=== PATIENT | male | born 1985 | race Caucasian/White ===

== ENCOUNTER 2023-01-17 09:56 | Emergency (ER) | payer OTHER, SELFPAY ==
[2023-01-17] VITALS (19 sets, daily range): BP systolic 110–152; BP diastolic 87–93; PULSE 62–89; RESP 13–18; TEMP 36.4; O2SAT 93–100
--- NOTE | ~2023-01-17 | CT_ITS ---
EXAMINATION: CT abdomen pelvis wo con DATE: 01/17/2023 10:27 INDICATION: Right abdominal pain. TECHNIQUE: Computed tomography (CT) of the abdomen and pelvis was performed without intravenous contr ast. Automated exposure control and iterative reconstruction technique were employed. The dose-length product was 312.68 mGy-cm. COMPARISON: None. FINDINGS: The visualized portions of the lung bases demonstrate minimal atelectasis. Calcified right lung nodules and calcified right hilar lymph nodes are consistent with old granulomatous disease. No pleural effusion. The heart size is normal. No pericardial effusion. The liver and gallbladder are no rmal. Calcifications in the spleen are consistent with old granulomatous disease. The pancreas, adren al glands, and right kidney are normal. There is a 2 mm stone in left kidney. There is a left inguina l hernia containing fat. There are no dilated loops of bowel. The appendix is normal. There is divert iculosis of the colon without evidence of diverticulitis. There are no pathologically enlarged lymph nodes. There is no free intraperitoneal fluid. There is severe lower lumbar spondylosis. IMPRESSION: 1. Left inguinal hernia containing fat. Reviewed, dictated and finalized at location A.
--- NOTE | ~2023-01-17 | US_ITS ---
EXAMINATION: US scrotum doppler DATE: 01/17/2023 11:36 INDICATION: Right testicular pain. TECHNIQUE: Grayscale and Doppler ultrasound images of the testes were obtained. COMPARISON: None. FINDINGS: The right testis measures 5.2 x 2.6 x 2.8 cm. The left testis measures 5.0 x 2.1 x 3.1 cm. There is normal vascular flow to both testes. The right epididymis is normal with normal vascular dennis w. The left epididymis is normal with normal vascular flow. There is no varicocele or hydrocele. IMPRESSION: 1. Normal testes. Reviewed, dictated and finalized at location A. IMPRESSION: 1. Normal testes.
--- NOTE | 2023-01-17 10:08 | ED.ABDPAIN ---
HPI - Abdominal Pain General Chief Complaint: Abdominal Pain Stated Complaint: ABD pain Time Seen by Provider: 01/17/23 10:02 Source: patient Mode of arrival: ambulatory Limitations: no limitations History of Present Illness HPI narrative: Patient is a 37 y/o male who presents to the ED with c/o R lower quadrant abdominal pain. Patient reports the pain began suddenly 1.5 hours ago. He states the pain is focal to his right lower abdomen and radiates down towards his groin/testicles. Denies any pain in his right back. He has not taken anything for pain prior to arrival. He has a history of kidney stones, last occurring a few months ago, which she was able to pass on his own. He states the pain feels somewhat similar to previous kidney stones, but he typically has pain in the back as well. He reports mild nausea, denies vomiting. Denies diarrhea. Denies difficulty urinating, dysuria, hematuria. Denies fevers. Related Data Allergies Allergy/AdvReac Type Severity Reaction Status Date / Time No Known Allergies Allergy Verified 01/17/23 10:01 Review of Systems Review of Systems: CONSTITUTIONAL: Denies fever, chills, or sweats. CARDIOVASCULAR: Denies chest pain. RESPIRATORY: Denies dyspnea. GASTROINTESTINAL: See HPI. GENITOURINARY: Denies dysuria or hematuria. SKIN: Denies rash or itching. MUSCULOSKELETAL: See HPI. All systems reviewed & are unremarkable except as noted in HPI and below PMFSH Past Medical History Medical History (Updated 01/17/23 @ 12:44 by Christie Schroeder PA-C) Kidney stones Exam Narrative: GENERAL: Uncomfortable appearing, well-nourished, non-toxic, in mild acute distress due to pain. HEAD: Normocephalic, atraumatic. NECK: Supple. No adenopathy, no masses. RESPIRATORY: Airway patent, respirations nonlabored. Clear to auscultation bilaterally, no rales, rhonchi, wheezing. CARDIOVASCULAR: Regular rate and rhythm without murmurs, rubs, or gallops. Radial pulses 2+ and equal bilaterally. ABDOMINAL: Soft, focal tenderness to right lower abdomen, mild tenderness in suprapubic region. Nondistended, no hepatosplenomegaly. Normoactive BS. MUSCULOSKELETAL: Moves all extremities. Strength/ROM intact without gross deformities. SKIN: Warm, dry, normal color. No rashes. NEURO: A&O X3. Speech clear. Cranial nerves II-XII grossly intact. Steady gait. No ataxic movements. PSYCHIATRIC: Appropriate mood and affect. Normal interaction. Course Vital Signs Vital signs: Vital Signs Temperature 97.6 F 01/17/23 10:01 Pulse Rate 88 01/17/23 10:01 Respiratory Rate 18 01/17/23 10:01 Blood Pressure 136/93 H 01/17/23 10:01 Pulse Oximetry 99 01/17/23 10:01 Oxygen Delivery Room Air 01/17/23 10:01 Temperature 97.6 F 01/17/23 10:01 Pulse Rate 66 01/17/23 12:39 Respiratory Rate 13 01/17/23 12:39 Blood Pressure 143/92 H 01/17/23 11:46 Pulse Oximetry 96 01/17/23 12:39 Oxygen Delivery Room Air 01/17/23 10:01 MDM - Abdominal Pain MDM Narrative Medical decision making narrative: Patient presented to ED with sudden onset of right lower abdominal pain, history of kidney stones. Vitals stable upon arrival, though patient very uncomfortable appearing, writhing around on ED bed. Basic blood work unremarkable, no leukocytosis. Stable electrolytes and kidney function. Normal LFTs and lipase. Urinalysis with RBCs, no signs of infection. CT scan of abdomen pelvis showing left inguinal hernia containing fat, no other significant abnormalities. No ureteral stones. Normal appendix. No bowel abnormalities. Patient still complaining of severe pain on reevaluation, will order additional pain medicine. Will obtain scrotal ultrasound as patient does report pain radiates down to his testicles. US w/o acute findings. No signs of torsion. Patient updated on lab and imaging findings. He is feeling much better with supportive therapy. Feels comfortable discharge home and would like to
[2023-01-17] MEDS: SODIUM CHLORIDE 0.9% IV 1,000 ML 999 ML IV CONT (10:13)
[2023-01-17] MEDS: ONDANSETRON INJ 4 MG/2 ML VIAL IV PUSH (10:14)
[2023-01-17] MEDS: MORPHINE SULFATE (*CRX) 4 MG/ML INJ IV PUSH (10:14)
[2023-01-17 10:17] LABS: Basophils Absolute Auto 0.1 K/mm3 (0.0-0.1); Basophils Percent Auto 0.7 % (0.2-1.2); Eosinophils Absolute Auto 0.2 K/mm3 (0-0.3); Eosinophils Percent Auto 2.2 % (0-4.4); Hematocrit 41.5 % (42.0-52.0); Hemoglobin 13.8 g/dL (14.0-18.0); Immature Granulocyte Absolute 0.02 K/mm3 (0.00-0.031); Immature Granulocyte Percent A 0.3 % (0-0.5); Lymphocytes Absolute Auto 1.21 K/mm3 (0.9-3.2); Lymphocytes Percent Auto 15.9 % (18.3-44.2); Mean Corpuscular HGB Conc 33.3 g/dl (32-36); Mean Corpuscular Hemoglobin 31.7 pg (26-34); Mean Corpuscular Volume 95.2 fl (80-100); Mean Platelet Volume 9.2 fl (7.4-10.4); Monocytes Absolute Auto 0.5 K/mm3 (0.1-0.6); Monocytes Percent Auto 6.1 % (2.6-8.5); Neutrophils Absolute Auto 5.7 K/mm3 (1.3-6.7); Neutrophils Percent Auto 74.8 % (45.5-73.1); Platelet Count Result 336 k/mm3 (150-375); Red Blood Count 4.36 M/mm3 (4.6-6.20); Red Cell Distribution Width 13.5 % (11.5-14.5); White Blood Count 7.6 K/mm3 (4.5-10.0)
[2023-01-17 10:30] LABS: Alanine Aminotransferase 42 U/L (6-50); Albumin Level 4.4 g/dL (3.5-5.1); Alkaline Phosphatase 70 U/L (38-126); Anion Gap 9 mmol/L (8-16); Aspartate Amino Transferase 73 U/L (17-59); Bilirubin,Total 0.6 mg/dL (0.2-1.3); Blood Urea Nitrogen 14 mg/dL (9-20); Calcium 9.8 mg/dL (8.4-10.2); Carbon Dioxide 27 mmol/L (22-30); Chloride 103 mmol/L (98-107); Estimated CRCL calculation 109 ml/min; Estimated Glomerular Filt Rate > 60; Glucose 105 mg/dL (65-110); Lipase 72 U/L (23-300); Potassium 4.9 mmol/L (3.4-5.0); Sodium 139 mmol/L (137-145)
[2023-01-17 11:13] LABS: Appearance Urine Cloudy (Clear); Bacteria Urine None Seen /hpf; Bilirubin Urine 1+ (Negative); Blood Urine 3+ (Negative); Color Urine Dark Yellow (Yellow); Glucose Urine UA Negative (Negative); Hyaline Casts Urine Present /lpf; Ketones Urine Trace mg/dL (Negative); Leukocyte Esterase Ur Negative LEU/UL (Negative); Need Manual Microscopic Reviewed; Nitrate Urine Negative (Negative); Non Pathogenic Casts >20; Protein Urine 1+ mg/dL (Negative); RBC Urine 51-100 /hpf (0-2); Specific Grav Ur 1.028 (1.001-1.035); Squamous Epithelial Cell Urine None seen /hpf (Few); WBC Urine 0-5 /hpf; pH Urine 5.5 (5.0-9.0)
[2023-01-17 11:23] LABS: Add Urine Microscopic? YES
--- NOTE | 2023-01-17 11:24 | PC.NURSE ---
report received from Sophia LUDWIG
[2023-01-17] MEDS: HYDROmorphone HCL INJ (*CRX) 1 MG/ML SYR IV PUSH (11:28)
[2023-01-17] MEDS: KETOROLAC 30 MG/ML VIAL (*BKC) IV PUSH (12:35)
== END 2023-01-17 12:56 | disposition home or self-care (01) ==
PROVIDERS: Emergency Medicine; Emergency Provider Physician Assistant; PCP Family Medicine
DX: R10.31 Right lower quadrant pain (principal); K40.90 Unilateral inguinal hernia, without obstruction or gangrene, not specified as recurrent; Z87.442 Personal history of urinary calculi
CPT/HCPCS: 36415; 74176; 76870; 80053; 81001; 83690; 85025; 93976; 96361; 96374; 96375; 99284; J1170; J1885; J2270; J2405; J7030